=== PATIENT | female | born 1950 | race Caucasian/White ===

== ENCOUNTER 2022-05-28 00:38 | Inpatient (IN) | payer MEDICARE, OTHER ==
[~2022-05-28] VITALS: Ht 185.4 cm; Wt 81.6 kg
--- NOTE | 2022-05-28 00:40 | NUR ---
ANAHIRA 87 FROM SNF FOR C/P CP AND TACHYCARDIA. ONE NITRO SL GIVEN AT FACILITY. PLACED PATIENT COMFORTABLY IN BED. VITAL CHECKED. ATTACHED TO PRODUCT COORDINATOR. PATIENT IS HAVING SINUS TACHYCARDIA HR 151BPM, BP 145/73mmHg, SPO2 96%. PATIENT CAME WITH MIDLINE ON RIGHT UPPER ARM USING G20. WOUND VAC ON RIGHT UPPER THIGH WITH DRESSING. PATIENT IS ALERT, ORIENTED AND ANXIOUS. NO CHEST PAIN AT THE MOMENT.
--- NOTE | 2022-05-28 00:43 | NUR ---
SEEN AND EXAMINED BY DR. FORTE WITH ORDERS TO BE CARRIED OUT.
[2022-05-28] MEDS ORDERED: DILTIAZEM HCL 50 MG IV ONE ×3 (00:46→01:20)
[2022-05-28] MEDS ORDERED: DILTIAZEM HCL 30 MG TABLET ONE (00:51)
--- NOTE | 2022-05-28 00:55 | NUR ---
COVID SWAB DONE AND SENT TO LAB
--- NOTE | 2022-05-28 00:55 | NUR ---
BLOOD DRAWN AND SENT TO LAB
[2022-05-28] MEDS ORDERED: ASPIRIN 81 MG TAB.CHEW PO ONE (01:00)
[2022-05-28] MEDS ORDERED: DILTIAZEM HCL 50 MG IV IV ONE (01:00)
[2022-05-28] MEDS ORDERED: DILTIAZEM HCL 30 MG TABLET PO ONE (01:00)
[2022-05-28] MEDS ORDERED: ASPIRIN 81 MG TAB.CHEW ONE (01:01)
[2022-05-28 01:12] LABS: BASOPHILS # (AUTO) 0.1 K/uL (0.0-0.2); EOSINOPHILS % (AUTO) 7.4 % (0.0-6.0); HEMATOCRIT 28 % (33-45); HEMOGLOBIN 9.1 g/dL (11.5-14.8); LYMPHOCYTES # (AUTO) 1.4 K/uL (0.8-4.8); LYMPHOCYTES % (AUTO) 14.7 % (20.0-44.0); MEAN CORPUSCULAR HGB CONC 33 g/dl (31.0-36.0); MEAN CORPUSCULAR VOLUME 89 fL (82-100); MONOCYTES % (AUTO) 10.6 % (2.0-12.0); NEUTROPHILS # (AUTO) 6.2 K/uL (1.8-8.9); NEUTROPHILS % (AUTO) 66.3 % (43.0-81.0); PLATELET COUNT (AUTO) 463 K/uL (150-450); WHITE BLOOD COUNT (AUTO) 9.4 K/uL (4.3-11.0)
--- NOTE | 2022-05-28 01:17 | NUR ---
XRRAY AT BEDSIDE
[2022-05-28 01:30] LABS: CARBON DIOXIDE 28 mmol/L (21-32); CHLORIDE 101 mmol/L (98-107); CREATININE 0.7 mg/dL (0.6-1.3); GLUCOSE 119 mg/dL (74-106); POTASSIUM 3.7 mmol/L (3.5-5.1); SODIUM SERUM 135 mmol/L (136-145); UREA NITROGEN, BLOOD 9 mg/dL (7-18)
[2022-05-28] MEDS ORDERED: DILTIAZEM HCL IV 125 MG in IV NS 0.9% 100 ML IV PRN (01:30)
--- NOTE | 2022-05-28 01:30 | NUR ---
CARDIZEM DRIP INITIATED AT 5MG/HR PER PROTOCOL FOR HR CONTROL
--- NOTE | 2022-05-28 01:35 | NUR ---
CARDIZEM DRIP INCREASED BY 5MG/HR PER PROTOCOL DUE TO SUSTAINED HR AT 130. CURRENT RATE 10MG/HR.
--- NOTE | 2022-05-28 01:40 | NUR ---
CARDIZEM DRIP INCREASED BY 5MG/HR PER PROTOCOL DUE TO HR 127. CURRENT RATE 15MG/HR. PT TOLERATING DRIP WELL.
[2022-05-28 01:43] LABS: THYROID STIMULATING HORMONE 1.947 uIU/mL (0.358-3.74)
--- NOTE | 2022-05-28 01:59 | NUR ---
OPENED UP A CASE WITH [facility] SPOKE TO JOCE. EXPECTING CALL BACK FROM [facility].
[2022-05-28] MEDS ORDERED: MAGNESIUM HYDROXIDE 30 ML UDC PO PRN (02:30)
[2022-05-28] MEDS ORDERED: ACETAMINOPHEN 325 MG TABLET PO PRN (02:30)
[2022-05-28] MEDS ORDERED: ZOLPIDEM TARTRATE 5 MG TABLET PO PRN (02:30)
[2022-05-28] MEDS ORDERED: Z GUARD REMEDY 4 OZ OINT TP PRN (02:30)
[2022-05-28] MEDS ORDERED: ONDANSETRON HCL/PF 4 MG/2 ML VIAL IVP PRN (02:30)
[2022-05-28] MEDS ORDERED: MAG HYDROX/AL HYDROX/SIMETH 30 ML UDC PO PRN (02:30)
--- NOTE | 2022-05-28 02:42 | NUR ---
CARDIZEM DRIP DECREASED BY 5MG/HR PER PROTOCOL DUE TO HR 98. CURRENT RATE 10MG/HR. PT TOLERATING DRIP WELL.
[2022-05-28] MEDS ORDERED: DIPH25CA83 PO (02:43)
[2022-05-28] MEDS ORDERED: MONT10TA22 PO (02:43)
[2022-05-28] MEDS ORDERED: AMLO2.5T4 PO (02:43)
[2022-05-28] MEDS ORDERED: HYDR-3980 PO (02:43)
[2022-05-28] MEDS ORDERED: ZOLM5TAB10 PO (02:43)
[2022-05-28] MEDS ORDERED: POTA10TA21 PO ×2 (02:43)
[2022-05-28] MEDS ORDERED: ONDA4TAB5 PO (02:43)
[2022-05-28] MEDS ORDERED: LORA10TA7 PO (02:43)
[2022-05-28] MEDS ORDERED: GABA-532 PO (02:43)
[2022-05-28] MEDS ORDERED: ASPI-1420 PO (02:43)
[2022-05-28] MEDS ORDERED: CEFP200T14 PO (02:43)
[2022-05-28] MEDS ORDERED: ASCO500T21 PO (02:43)
[2022-05-28] MEDS ORDERED: diphenhydrAMINE HCL 50 MG CAPSULE ONE (02:45)
--- NOTE | 2022-05-28 02:57 | NUR ---
CARDIZEM DRIP DECREASED BY 5MG/HR PER PROTOCOL DUE TO HR 92. CURRENT RATE 5MG/HR. PT TOLERATING DRIP WELL. SLEEPING COMFORTABLY BREATHING EVEN AND UNLABORED.
[2022-05-28] MEDS ORDERED: diphenhydrAMINE HCL 25 MG CAPSULE PO ONE (03:00)
[2022-05-28] MEDS ORDERED: ZOLMITRIPTAN PO SCH (03:30)
[2022-05-28 04:33] LABS: MAGNESIUM 2.1 mg/dL (1.8-2.4); PHOSPHORUS 3.9 mg/dL (2.5-4.9)
--- NOTE | 2022-05-28 06:54 | NUR ---
CARDIZEM DRIP DECREASED BY 2MG/HR PER PROTOCOL DUE TO HR 96. CURRENT RATE 3MG/HR. PT TOLERATING DRIP WELL. SLEEPING COMFORTABLY BREATHING EVEN AND UNLABORED.
[2022-05-28] MEDS ORDERED: HYDROCODONE/APAP 10/325MG TABLET ONE (07:00)
[2022-05-28] MEDS: HYDROCODONE/APAP 10/325MG TABLET PO PRN ×3 (07:01→21:33)
[2022-05-28] MEDS ORDERED: VIT1CAPS9 PO (07:36)
[2022-05-28] MEDS ORDERED: DOCU-141 PO (07:36)
[2022-05-28] MEDS ORDERED: DIPH50CA4 PO (07:36)
[2022-05-28] MEDS ORDERED: POLY17PO4 PO (07:36)
[2022-05-28] MEDS ORDERED: MAGN400O6 PO (07:36)
[2022-05-28] MEDS ORDERED: SENN-261 PO (07:36)
[2022-05-28] MEDS ORDERED: NEOM1OIN15 TP (07:36)
[2022-05-28] MEDS ORDERED: BISA10SU11 RC (07:36)
[2022-05-28] MEDS ORDERED: CHOL100043 PO (07:36)
[2022-05-28] MEDS ORDERED: MAGN400T26 PO (07:36)
[2022-05-28] MEDS ORDERED: NA P133E RC (07:36)
[2022-05-28] MEDS ORDERED: MAGN125C PO (07:36)
--- NOTE | 2022-05-28 07:37 | NUR ---
CARDIZEM DRIP TURNED OFF DUE TO HEART RATES IN LOW 90S-80S. WILL CONTINUE TO MONITOR RATE.
--- NOTE | 2022-05-28 08:51 | NUR ---
REPORT GIVEN TO ZAHEER
[2022-05-28] MEDS ORDERED: AMLODIPINE BESYLATE 5 MG TABLET ONE (08:56)
[2022-05-28] MEDS ORDERED: ASPIRIN EC 81 MG TABLET.DR PO ONE (08:57)
[2022-05-28] MEDS ORDERED: ASCORBIC ACID 500 MG TABLET ONE (08:57)
[2022-05-28] MEDS ORDERED: LORATADINE 10 MG TABLET ONE (08:57)
[2022-05-28] MEDS ORDERED: CEFPODOXIME PROXETIL 200 MG PO SCH (09:00)
[2022-05-28] MEDS ORDERED: AMLODIPINE BESYLATE 2.5 MG TABLET PO SCH (09:00)
--- NOTE | 2022-05-28 09:01 | NUR ---
RN NOTES RECEIVED PT FROM ER, DX AFIB WITH RVR BY DR. MORALES, AO3, ON ROOM AIR, O2 SAT AT 100% RESPIRATION UNLABORED, DENIES CHEST PAIN. AFIB HR 112 ON MONITOR. IV ACCESS ON MAGDA MIDLINE FLUSHES WELL SITE CLEAR. PT WITH RT FOOT BRACE. PATIENT HAD HIP ARHTROPLASTY X 2, SURGICAL DRESSING INTACT WITH ATTACHED WOUND VAC O DRAINAGE. SEE NURSING FLOWSHEET FOR SKIN ISSUES. PATIENT RECEIVED CARDIZEM AT ER EARLIER. UNIT ORIENTATION DONE WITH USE OF CALL LIGHT, BED LOW LOCKED, SAFETY MEASURES IN PLACE, WILL CONT TO MONITOR.
[2022-05-28 09:10] VITALS: BP 144/77
[2022-05-28] MEDS: LORATADINE 10 MG TABLET PO SCH ×2 (10:46→21:29)
[2022-05-28] MEDS: POTASSIUM CITRATE 5 MEQ TABLET.SA PO SCH ×2 (10:46→18:12)
[2022-05-28] MEDS: ASCORBIC ACID 500 MG TABLET PO SCH ×2 (10:46→18:14)
[2022-05-28] MEDS: ASPIRIN EC 81 MG TABLET.DR PO SCH ×2 (10:47→18:12)
[2022-05-28] MEDS ORDERED: METOPROLOL TARTRATE 50 MG TABLET PO SCH ×2 (11:00→21:00)
[2022-05-28] MEDS: APIXABAN 5 MG TABLET PO SCH ×2 (11:13→18:13)
--- NOTE | 2022-05-28 16:09 | NUR ---
SS consult received for pt. who has questions about her insurance. SW called pt.'s room and no answer. JOJO notified charge nurse, Tana that pt needs to call [facility] financial services department at extension [phone].
--- NOTE | 2022-05-28 17:26 | NUR ---
RN NOTES RN FARM FIELD MANAGER LUZ MARINA, CHARGE NURSE SOON, AWARE, PT CAME IN WITH A WOUND VAC AND NEEDS BATTERY. ALSO PATIENT IS ASKING FOR ANTIBIOTIC, DR. CHRISTY AWARE.
[2022-05-28] MEDS: MONTELUKAST SODIUM (10MG) 10 MG TABLET PO SCH (18:12)
[2022-05-28] MEDS: DILTIAZEM HCL 30 MG TABLET PO SCH (18:14)
--- NOTE | 2022-05-28 19:55 | NUR ---
RN NOTES ALL NEEDS MET AT THIS TIME. PT RESTING AND GIVEN PAIN MEDICATIONS ACCORDINGLY. PER PT, SHE HAS AN ABDOMINAL NINDER AND A TIRE FABRIC IMPREGNATING RANGE TENDER AT THE FACILITY WILL CALL THEM UP FOR HER NIECE TO PICK IT UP AND BRING IT OVER HERE. SPOKE WITH DR. CHRISTY EARLIER, WILL START PT ON IV ANTIBIOTIC. FOR ORTHO CONSULT AND DR. MANCILLA SUPERVISOR MAJOR APPLIANCE ASSEMBLY. ENDORSED TO NEXT SHIFT FOR ELY.
[2022-05-28 20:00] VITALS: BP 114/56
--- NOTE | 2022-05-28 20:00 | NUR ---
SAGE RN NOTE RECIEVED PT IN BED A/O X 4. NO SOB NO DISTRESS OR DISCOMFORT NOTED. DENIES PAIN AT THIS TIME. MAGDA MIDLINE INTACT AND PATENT. ON TELE MONITOR SR HR 90. F/C INTACT AND PATENT DRAINING JANENE COLOR URINE. RT FOOT WITH BRACE ON TO PROTECT FROM FOOT DROP. RT HIP WITH SURGICAL DRESSING I/C/D WITH WOUND VAC ON. BUT NO WORKING DUE TO BATTERY DEPLEATED AND NEED TO CHARGE UP. PT IS TRY TO GET IT FROM SNF WHERE SHE LEFT IT. ALSO ABD PILLOW AND BRACE. SIDE RIALS UP X 2 AND CALL LIGHT WITHIN REACH. VSS. CONTINUE TO MONITOR HER.
[2022-05-28] MEDS: PIPERACILLIN /TAZOBACTAM 3.375 G in IV D5W 100 ML IV SCH (21:29)
[2022-05-28] MEDS: diphenhydrAMINE HCL 25 MG CAPSULE PO SCH (21:32)
[2022-05-28] MEDS: GABAPENTIN 300 MG CAPSULE PO PRN (21:34)
[2022-05-29] VITALS: BP 122/76
[2022-05-29] MEDS: DILTIAZEM HCL 30 MG TABLET PO SCH ×6 (00:25→23:17)
[2022-05-29 04:00] VITALS: BP 132/73
[2022-05-29] MEDS: PIPERACILLIN /TAZOBACTAM 3.375 G in IV D5W 100 ML IV SCH ×3 (04:31→21:45)
[2022-05-29] MEDS: HYDROCODONE/APAP 10/325MG TABLET PO PRN ×6 (04:32→22:28)
--- NOTE | 2022-05-29 06:33 | NUR ---
SAGE RN NOTE PT IN BED ASLEEP, AROUSABLE. NO DISTRESS OR DISCOMFORT NOTED. PT MEDICATED FOR PAIN DURING THE NIGHT. ALL NEEDS ATTENDED. WOUND VAC WITH NO OUTPUT NOTED. ALL NEEDS ATTENDED. SIDE RAILS UP X 2 AND CALL LIGHT WITHIN REACH. WILL ENDORSE TO DAY SHIFT NURSE FOR CONTINUE TO CARE.
[2022-05-29 06:48] LABS: CHOLESTEROL 159 mg/dL (<200); HDL CHOLESTEROL 32 mg/dL (40-60); LDL 110 mg/dL (0-99); TRIGLYCERIDES 82 mg/dL (30-150)
[2022-05-29 06:52] LABS: CALCIUM, SERUM 8.1 mg/dL (8.5-10.1); CARBON DIOXIDE 26 mmol/L (21-32); CHLORIDE 104 mmol/L (98-107); CREATININE 0.6 mg/dL (0.6-1.3); GLUCOSE 96 mg/dL (74-106); POTASSIUM 4.2 mmol/L (3.5-5.1); SODIUM SERUM 137 mmol/L (136-145); UREA NITROGEN, BLOOD 9 mg/dL (7-18)
[2022-05-29 07:19] LABS: BASOPHILS % (AUTO) 0.3 % (0.0-2.0); EOSINOPHILS % (AUTO) 13.7 % (0.0-6.0); HEMATOCRIT 27 % (33-45); HEMOGLOBIN 8.9 g/dL (11.5-14.8); LYMPHOCYTES # (AUTO) 1.3 K/uL (0.8-4.8); MEAN CORPUSCULAR HGB CONC 33 g/dl (31.0-36.0); MEAN CORPUSCULAR VOLUME 89 fL (82-100); MONOCYTES # (AUTO) 0.8 K/uL (0.1-1.30); MONOCYTES % (AUTO) 8.5 % (2.0-12.0); NEUTROPHILS # (AUTO) 5.7 K/uL (1.8-8.9); NEUTROPHILS % (AUTO) 63.5 % (43.0-81.0); PLATELET COUNT (AUTO) 456 K/uL (150-450); RED BLOOD CELL COUNT(AUTO) 3.05 MIL/uL (4.0-5.2); WHITE BLOOD COUNT (AUTO) 8.9 K/uL (4.3-11.0)
[2022-05-29 08:00] VITALS: BP 126/77
[2022-05-29] MEDS: APIXABAN 5 MG TABLET PO SCH ×2 (08:48→17:32)
[2022-05-29] MEDS: ASCORBIC ACID 500 MG TABLET PO SCH ×2 (08:49→17:29)
[2022-05-29] MEDS: LORATADINE 10 MG TABLET PO SCH ×2 (08:49→21:46)
[2022-05-29] MEDS: ASPIRIN EC 81 MG TABLET.DR PO SCH ×2 (08:49→17:29)
--- NOTE | 2022-05-29 08:58 | NUR ---
WOUND CARE CONSULT: PT PRESENTS WITH RT HIP PREVENA WOUND VAC DRESSING WHICH IS INTACT. NO DRAINAGE NOTED IN CANISTER. PT FOLLOWED BY ORTHOPEDIST. DEFER TO ORTHO FOR RT HIP. PT PRESENTS WITH SPOTTY RASH TO CHEST,BACK AND ABDOMEN, PRESENT ON ADMISSION, UNKNOWN ETIOLOGY. DEFER TO PMD FOR RASH. LEFT ELBOW WOUND NOTED, PRESENT ON ADMISSION. RECOMMENDATIONS MADE FOR SKIN PROTECTION AND WOUND CARE. DISCUSSED WITH NURSING STAFF. MD IN AGREEMENT WITH PLAN OF CARE. Addendum: 05/29/22 at 0905 by NAZANIN GALLARDO WNDNU Amended: Links added.
[2022-05-29] MEDS ORDERED: HYDROGEL DRESSING 90 GM TUBE TP PRN (09:00)
[2022-05-29] MEDS: POTASSIUM CITRATE 5 MEQ TABLET.SA PO SCH ×2 (09:19→18:04)
[2022-05-29] MEDS: HYDROGEL DRESSING 90 GM TUBE TP SCH (10:14)
[2022-05-29 10:31] LABS: IRON, SERUM 32 ug/dl (50-175); TOTAL IRON BINDING CAPACITY 209 ug/dl (250-450)
[2022-05-29 10:43] LABS: FERRITIN 220 ng/mL (8-388)
--- NOTE | 2022-05-29 14:40 | NUR ---
SPOKE WITH WING WOUND NURSE,SHE WILL EVALUATE AGAIN PT. IN AM AND WILL APPLY WOUND VAC IF NEEDED.PT. MADE AWARE.
--- NOTE | 2022-05-29 14:50 | NUR ---
rn notes: wound vac stopped working per pt she was told it is good for 7 days only and it just completed [address] Mohan ordonez who said [facility] wound nurse to place hospital wound vac in am,dressing remained intact, pt made aware
[2022-05-29 16:00] VITALS: BP 118/65
[2022-05-29] MEDS: MONTELUKAST SODIUM (10MG) 10 MG TABLET PO SCH (17:29)
--- NOTE | 2022-05-29 19:33 | NUR ---
MS RN CLOSING NOTES: PT IN BED AWAKE, ALERT AND ORIENTED X 4. NO DISTRESS OR DISCOMFORT NOTED. PT MEDICATED FOR PAIN DURING THE DAY NEEDED ORDERED.. ALL NEEDS ATTENDED. . ALL NEEDS ATTENDED. SIDE RAILS UP X 2 AND CALL LIGHT WITHIN REACH. WILL ENDORSE TO ASSESSMENT ANALYST NURSE FOR CONTINUE TO CARE.
[2022-05-29 20:00] VITALS: BP 116/77
--- NOTE | 2022-05-29 20:00 | NUR ---
MS RN NOTE RECIEVED PT IN BED A/O X 4. NO SOB NO DISTRESS OR DISCOMFORT NOTED. DENIES PAIN AT THIS TIME. MAGDA MIDLINE AND LFA #22G SL INTACT AND PATENT. F/C INTACT AND PATENT DRAINING JANENE COLOR URINE. RT FOOT WITH BRACE ON TO PROTECT FROM FOOT DROP. RT HIP WITH SURGICAL DRESSING I/C/D WITH WOUND VAC ON. BUT NO WORKING DUE TO BATTERY DEPLEATED. WOUND NURSE WILL REPLACE WOUND VAC IN AM. SIDE RIALS UP X 2 AND CALL LIGHT WITHIN REACH. VSS. CONTINUE TO MONITOR HER.
[2022-05-29] MEDS: diphenhydrAMINE HCL 25 MG CAPSULE PO SCH (21:46)
[2022-05-29] MEDS: GABAPENTIN 300 MG CAPSULE PO PRN (23:19)
[2022-05-30 04:00] VITALS: BP 131/75
[2022-05-30] MEDS: DILTIAZEM HCL 30 MG TABLET PO SCH ×3 (05:34→17:16)
[2022-05-30] MEDS: PIPERACILLIN /TAZOBACTAM 3.375 G in IV D5W 100 ML IV SCH ×3 (05:55→22:43)
--- NOTE | 2022-05-30 06:37 | NUR ---
MS RN NOTE PT IN BED ASLEEP, EASILY AROUSABLE. NO DISTRESS OR DISCOMFORT NOTED. DENIES PAIN. SIDE RAILS UP X 2 AND CALL LIGHT WITHIN REACH. WILL ENDORSE TO DAY SHIFT NURSE FOR CONTINUE TO CARE.
[2022-05-30 06:42] LABS: BASOPHILS # (AUTO) 0.1 K/uL (0.0-0.2); BASOPHILS % (AUTO) 0.8 % (0.0-2.0); HEMATOCRIT 27 % (33-45); HEMOGLOBIN 8.8 g/dL (11.5-14.8); LYMPHOCYTES # (AUTO) 1.3 K/uL (0.8-4.8); LYMPHOCYTES % (AUTO) 14.9 % (20.0-44.0); MEAN CORPUSCULAR HGB CONC 33 g/dl (31.0-36.0); MEAN CORPUSCULAR VOLUME 89 fL (82-100); MONOCYTES # (AUTO) 0.7 K/uL (0.1-1.30); MONOCYTES % (AUTO) 7.7 % (2.0-12.0); NEUTROPHILS # (AUTO) 5.5 K/uL (1.8-8.9); NEUTROPHILS % (AUTO) 63.6 % (43.0-81.0); PLATELET COUNT (AUTO) 447 K/uL (150-450); RED BLOOD CELL COUNT(AUTO) 3.01 MIL/uL (4.0-5.2); WHITE BLOOD COUNT (AUTO) 8.7 K/uL (4.3-11.0)
--- NOTE | 2022-05-30 07:17 | NUR ---
RN OPENING NOTE RECEIVED PT IN BED A/O X 4. NO SOB NO DISTRESS OR DISCOMFORT NOTED. DENIES PAIN AT THIS TIME. MAGDA MIDLINE AND LFA #22G SL INTACT AND PATENT. F/C INTACT AND PATENT DRAINING JANENE COLOR URINE. RT FOOT WITH BRACE ON TO PROTECT FROM FOOT DROP. RT HIP WITH SURGICAL DRESSING I/C/D WITH WOUND VAC ON. WOUND NURSE WILL REPLACE WOUND VAC. SAFETY MEASURES IN PLACE CALL LIGHT WITHIN REACH, BED ALARM ACTIVATED 2 SIDE RAILS UP.
[2022-05-30 07:49] LABS: CALCIUM, SERUM 8.1 mg/dL (8.5-10.1); CARBON DIOXIDE 26 mmol/L (21-32); CHLORIDE 105 mmol/L (98-107); CREATININE 0.7 mg/dL (0.6-1.3); GLUCOSE 90 mg/dL (74-106); POTASSIUM 4.2 mmol/L (3.5-5.1); SODIUM SERUM 138 mmol/L (136-145); UREA NITROGEN, BLOOD 10 mg/dL (7-18)
[2022-05-30 08:00] VITALS: BP 140/77
[2022-05-30] MEDS: ASPIRIN EC 81 MG TABLET.DR PO SCH ×2 (08:08→17:15)
[2022-05-30] MEDS: LORATADINE 10 MG TABLET PO SCH ×2 (08:08→22:44)
[2022-05-30] MEDS: POTASSIUM CITRATE 5 MEQ TABLET.SA PO SCH ×2 (08:08→17:19)
[2022-05-30] MEDS: ASCORBIC ACID 500 MG TABLET PO SCH ×2 (08:08→17:16)
[2022-05-30] MEDS: APIXABAN 5 MG TABLET PO SCH ×2 (08:09→17:17)
[2022-05-30] MEDS: HYDROGEL DRESSING 90 GM TUBE TP SCH (08:21)
--- NOTE | 2022-05-30 10:07 | NUR ---
WOUND CARE FOLLOW UP: HAD RECEIVED ORDER FROM DR MANCILLA TO CHANGE RT HIP INCISIONAL VAC DRESSING. PREVIOUS DRESSING REMOVED AND PHOTO TAKEN OF CLOSED INCISION WITH SUTURES. SPOKE WITH DR MANCILLA AND VAC ORDER DISCONTINUED. RECEIVED ORDER FOR OPTIFOAM GENTLE BORDER DRESSING. PT TOLERATED DRESSING CHANGE WELL. NO SIGN OF INFECTION NOTED. DISCUSSED SKIN PROTECTION WITH NURSING STAFF. IN AGREEMENT WITH PLAN OF CARE. Addendum: 05/30/22 at 1009 by NAZANIN GALLARDO WNDNU Amended: Links added.
[2022-05-30] MEDS: HYDROCODONE/APAP 10/325MG TABLET PO PRN ×2 (11:15→22:44)
--- NOTE | 2022-05-30 14:41 | NUR ---
EAMON NOTE RE WOUND CARE NURSE DOCUMENTATION FOR WOUND VAC Addendum: 05/30/22 at 1442 by AMY STOKES RN Amended: Links added.
[2022-05-30 16:00] VITALS: BP 126/66
[2022-05-30] MEDS: MONTELUKAST SODIUM (10MG) 10 MG TABLET PO SCH (17:16)
--- NOTE | 2022-05-30 18:43 | NUR ---
RN CLOSING NOTE PT IN BED A/O X 4. NO SOB NO DISTRESS OR DISCOMFORT NOTED. DENIES PAIN AT THIS TIME. MAGDA MIDLINE AND LFA #22G SL INTACT AND PATENT. F/C INTACT AND PATENT DRAINING YELLOW COLOR URINE. RT FOOT WITH BRACE ON TO PROTECT FROM FOOT DROP. RT HIP WITH SURGICAL DRESSING . SAFETY MEASURES IN PLACE CALL LIGHT WITHIN REACH ALARM ACTIVATED WILL ENDORSE TO NIGHT NURSE FOR ELY.
[2022-05-30 20:00] VITALS: BP 127/70
--- NOTE | 2022-05-30 20:00 | NUR ---
MS RN NOTE PT IN BED AWAKE. A/O X 4, NO SOB, NO DISTRESS OR DISCOMFORT NOTED. DENIES PAIN. MAGDA MIDLINE AND LFA #22 G S/L INTACT AND PATENT. RT HIP SX SITE DRESSING I/C/D NO BLEEDING AND S/S OF INFECTION NOTED. NEW DRESSING DONE TODAY PER WOUND NURSE. ALL NEEDS ATTENDED. VSS. CONTINUE TO MONITOR HER.
[2022-05-30] MEDS: diphenhydrAMINE HCL 25 MG CAPSULE PO SCH (22:43)
[2022-05-30] MEDS: GABAPENTIN 300 MG CAPSULE PO PRN (22:43)
[2022-05-31] MEDS: DILTIAZEM HCL 30 MG TABLET PO SCH ×4 (00:25→17:54)
[2022-05-31 04:00] VITALS: BP 144/87
[2022-05-31] MEDS: PIPERACILLIN /TAZOBACTAM 3.375 G in IV D5W 100 ML IV SCH ×3 (05:57→20:05)
[2022-05-31 07:17] LABS: BASOPHILS # (AUTO) 0.1 K/uL (0.0-0.2); BASOPHILS % (AUTO) 1.1 % (0.0-2.0); EOSINOPHILS % (AUTO) 10.6 % (0.0-6.0); HEMATOCRIT 27 % (33-45); HEMOGLOBIN 9.1 g/dL (11.5-14.8); LYMPHOCYTES # (AUTO) 1.2 K/uL (0.8-4.8); LYMPHOCYTES % (AUTO) 14.7 % (20.0-44.0); MEAN CORPUSCULAR HGB CONC 34 g/dl (31.0-36.0); MEAN CORPUSCULAR VOLUME 87 fL (82-100); MONOCYTES # (AUTO) 0.6 K/uL (0.1-1.30); MONOCYTES % (AUTO) 7.5 % (2.0-12.0); NEUTROPHILS # (AUTO) 5.6 K/uL (1.8-8.9); NEUTROPHILS % (AUTO) 66.1 % (43.0-81.0); PLATELET COUNT (AUTO) 428 K/uL (150-450); WHITE BLOOD COUNT (AUTO) 8.5 K/uL (4.3-11.0)
[2022-05-31 07:24] LABS: CALCIUM, SERUM 8.3 mg/dL (8.5-10.1); CREATININE 0.7 mg/dL (0.6-1.3)
--- NOTE | 2022-05-31 07:30 | NUR ---
RECEIVED PT IN BED ASLEEP. NO SOB NO DISTRESS OR DISCOMFORT NOTED. MAGDA MIDLINE AND LFA #22G SL INTACT AND PATENT. F/C INTACT AND PATENT DRAINING JANENE COLORED URINE. RT FOOT WITH BRACE ON TO PROTECT FROM FOOT DROP. RT HIP WITH SURGICAL DRESSING I/C/D WITH WOUND VAC ON. WOUND NURSE WILL REPLACE WOUND VAC. SAFETY MEASURES IN PLACE CALL LIGHT WITHIN REACH, BED ALARM ACTIVATED 2 SIDE RAILS UP.
[2022-05-31 08:00] VITALS: BP 137/81
[2022-05-31] MEDS: ASPIRIN EC 81 MG TABLET.DR PO SCH ×2 (09:25→17:50)
[2022-05-31] MEDS: LORATADINE 10 MG TABLET PO SCH ×2 (09:26→20:04)
[2022-05-31] MEDS: APIXABAN 5 MG TABLET PO SCH ×2 (09:28→17:52)
[2022-05-31] MEDS: ASCORBIC ACID 500 MG TABLET PO SCH ×2 (09:28→17:53)
[2022-05-31] MEDS: POTASSIUM CITRATE 5 MEQ TABLET.SA PO SCH ×2 (09:28→18:06)
[2022-05-31] MEDS: HYDROGEL DRESSING 90 GM TUBE TP SCH (09:29)
[2022-05-31] MEDS: HYDROCODONE/APAP 10/325MG TABLET PO PRN ×2 (09:38→20:04)
--- NOTE | 2022-05-31 11:00 | NUR ---
AT BEDSIDE. PT REPORTED FEELING CONSTIPATED. MD ORDERED DOCUSATE SODIUM 100MG PO DAILY.
[2022-05-31] MEDS ORDERED: DILT30TA14 PO (13:23)
[2022-05-31] MEDS ORDERED: APIX5TAB PO (13:23)
[2022-05-31 16:00] VITALS: BP 146/89
[2022-05-31 17:54] VITALS: BP 146/89
[2022-05-31] MEDS: MONTELUKAST SODIUM (10MG) 10 MG TABLET PO SCH (17:54)
[2022-05-31] MEDS ORDERED: DOCUSATE SODIUM 100 MG CAPSULE PO SCH (18:00)
--- NOTE | 2022-05-31 18:47 | NUR ---
PT SITING IN BED AWAKE NO SOB NO DISTRESS OR DISCOMFORT NOTED. MAGDA MIDLINE AND LFA #22G SL DISCONTINUED. F/C INTACT AND PATENT DRAINING JANENE COLORED URINE REMOVED. RT FOOT WITH BRACE ON TO PROTECT FROM FOOT DROP. RT HIP WITH SURGICAL DRESSING I/C/D WITH WOUND VAC ON. SAFETY MEASURES IN PLACE CALL LIGHT WITHIN REACH, BED ALARM ACTIVATED 2 SIDE RAILS UP. WILL ENDORSE TO NEXT NURSE ON DUTY FOR CONTINUITY OF CARE.
--- NOTE | 2022-05-31 19:33 | NUR ---
MS RN OPENING NOTE RECEIVED PT IN BED A/O X 4. NO SOB NO DISTRESS OR DISCOMFORT NOTED. DENIES PAIN AT THIS TIME. NO IV ACCESS NOTED AT THIS TIME. F/C REMOVED BY AM NURSE. RT FOOT WITH BRACE ON TO PROTECT FROM FOOT DROP. RT HIP WITH SURGICAL DRESSING I/C/D WITH WOUND VAC ON. SAFETY MEASURES IN PLACE, CALL LIGHT WITHIN REACH, BED ALARM ACTIVATED, 2 SIDE RAILS UP. BED IN LOWEST AND LOCKED POSITION, AWAITING FOR DISCHARGE PATIENT TRANSPORTATION DRIVER FROM [facility], WILL CONT TO MONITOR THROUGHOUT THE SHIFT. Addendum: 05/31/22 at 1939 by RONDA CARTAGENA RN LOGGED IN [facility]
[2022-05-31] MEDS: diphenhydrAMINE HCL 25 MG CAPSULE PO SCH (20:03)
--- NOTE | 2022-05-31 20:11 | NUR ---
RN NOTE BOTH IV ACCESS D/C BY THE AM NURSE. PT AWAITING FOR TRANSFER TO [facility] , IV ZOSYN NOT ADMINISTERED THIS TIME.
--- NOTE | 2022-05-31 20:35 | NUR ---
RN NOTE REPORT GIVEN TO GOLD FROM [facility] FOR PT TRANSFER AT [facility], V/S TAKEN AND RECORDED. ALL DUE MEDS GIVEN AT THIS TIME.
--- NOTE | 2022-05-31 20:57 | NUR ---
RN NOTE PT TRANSFERRED VIA GURNEY ASSISTED BY 2 PERSONNEL FROM [facility]. PT A/O X 4, ABLE TO MAKE NEEDS KNOWN. V/S TAKEN AND WNL. ALL SAFETY PRECAUTION IN PLACE DURING THE TRANSFER.
== END 2022-05-31 21:11 | DRG 309 ==
LOC: ER 00:40 → TRANSITION 04:10 → TELE-TD 08:30 → MEDSG1 05-29 09:46
PROVIDERS: ADMIT Student in an Organized Health Care Education/Training Program; ATTEND Family Medicine
DX: I48.91 Unspecified atrial fibrillation (principal); D68.59 Other primary thrombophilia; D75.839 Thrombocytosis, unspecified; Z20.822 Contact with and (suspected) exposure to COVID-19; D64.9 Anemia, unspecified; E05.00 Thyrotoxicosis with diffuse goiter without thyrotoxic crisis or storm; Z88.8 Allergy status to other drugs, medicaments and biological substances; I11.0 Hypertensive heart disease with heart failure; I50.9 Heart failure, unspecified; E03.9 Hypothyroidism, unspecified; Z96.641 Presence of right artificial hip joint
CPT/HCPCS: 36415; 71045-TC; 80048-TC; 80061-TC; 82728-TC; 82962-TC; 83540-TC; 83735-TC; 84100-TC; 84439-TC; 84443-TC; 84484-TC; 85025-TC; 87081-TC; 93307-TC; 97116-TC; 97530-TC; A6248; C9803; G0378; J2405; J2543; J3490; J7030; J7050; J7060; Q0163